=== PATIENT | female | born 1980 ===

== ENCOUNTER 2017-08-27 22:28 | Emergency (ER) | payer OTHER ==
[2017-08-27 22:44] VITALS: BP 103/70; PULSE 74; RESP 18; TEMP 98.2; O2SAT 99
[2017-08-27 23:08] LABS: HCG,QUALITATIVE URINE NEGATIVE (NEGATIVE); SQUAMOUS EPITHIAL 5 /hpf (0-5); URINE BACTERIA RARE (<OCC)
[2017-08-27 23:10] LABS: PH,URINE 7.5 (5.0-8.0); URINE BILIRUBIN NEGATIVE (NEGATIVE); URINE BLOOD NEGATIVE (NEGATIVE); URINE CLARITY CLEAR (Clear); URINE COLOR YELLOW (YELLOW); URINE GLUCOSE (UA) NEGATIVE (Normal); URINE LEUKOCYTE ESTERASE NEGATIVE Leu/uL (Negative); URINE NITRATE NEGATIVE (NEGATIVE); URINE PROTEIN TRACE mg/dL (NEGATIVE); URINE UROBILINOGEN 0.2 mg/dL (0.2-1.0)
[2017-08-28] MEDS ORDERED: cefTRIAXone (Rocephin) 250 mg Inj IM STA (00:12)
--- NOTE | 2017-08-28 00:34 | C.PDOC ---
History Of Present Illness 36 year old female presents to the ER with a one week Hx of suprapubic pain, associated with urinary frequency and burning on urination. Patient reports the pain worsened over the past two days, states it hurts to walk. Denies fever, diarrhea, or vaginal bleeding. Time Seen by Provider: 08/27/17 22:51 Chief Complaint (Nursing): Female Genitourinary History Per: Patient History/Exam Limitations: no limitations Onset/Duration Of Symptoms: Days Current Symptoms Are (Timing): Still Present Quality Of Discomfort: Unable To Describe Associated Symptoms: denies: Fever, Vomiting, Diarrhea, Other (Vaginal bleeding) Alleviating Factors: None Recent travel outside of the [place]: No Abnormal Vaginal Bleeding: No Past Medical History Reviewed: Historical Data, Nursing Documentation, Vital Signs Vital Signs: Last Vital Signs Temp 98.2 F 08/27/17 22:41 Pulse 74 08/27/17 22:41 Resp 18 08/27/17 22:41 BP 103/70 08/27/17 22:41 Pulse Ox 99 08/28/17 02:43 - [facility] Procedures EXTRACTION OF PRODUCTS OF CONCEPTION, RETAINED, VIA OPENING (08/22/16) INSPECTION OF PELVIC CAVITY, PERC ENDO APPROACH (08/22/16) Family History: States: Unknown Family Hx - Social History Hx Tobacco Use: No Hx Alcohol Use: No Hx Substance Use: No - Immunization History Hx Tetanus Toxoid Vaccination: No Hx Influenza Vaccination: Yes Hx Pneumococcal Vaccination: No Review Of Systems Constitutional: Negative for: Fever Gastrointestinal: Positive for: Abdominal Pain. Negative for: Vomiting, Diarrhea Genitourinary: Positive for: Dysuria, Frequency. Negative for: Vaginal Bleeding Physical Exam - Physical Exam Appears: Non-toxic, No Acute Distress Skin: Normal Color, Warm, Dry Head: Atraumatic, Normacephalic Eye(s): bilateral: Normal Inspection Oral Mucosa: Moist Neck: Normal ROM, Supple Chest: Symmetrical, No Tenderness Cardiovascular: Rhythm Regular Respiratory: Normal Breath Sounds, No Rales, No Rhonchi, No Wheezing Gastrointestinal/Abdominal: Soft, Tenderness (Suprapubic), No Guarding, No Rebound Back: Normal Inspection, No CVA Tenderness Pelvic: Normal External Exam, No Vaginal Bleeding, Vaginal Discharge (Yellow/ white), Cervical Motion Tenderness, No Adnexal Tenderness, Other (Stock Broker Supervisor: Imelda WORTHY) Extremity: Normal ROM, No Tenderness, No Swelling Neurological/Psych: Oriented x3, Normal Speech, Normal Motor, Normal Sensation Gait: Steady ED Course And Treatment O2 Sat by Pulse Oximetry: 99 (on RA) Pulse Ox Interpretation: Normal Medical Decision Making Medical Decision Making: Urine and gc/chlamydia cultures sent. Patient has (+) CMT and will be treated for possible PID. UA was negative, will not treat for UTI. Doxycycline, flagyl, and rocephin administered. Patient is resting comfortably in the ER in no acute distress, will discharge home with instructions to follow up with HARDWARE TEST ENGINEER or return to the ER if symptoms worsen. Disposition - Disposition Referrals: Non [facility] Provider, [Primary Care Provider] - [place] [employer] [facility] [employer] [Outside] [facility] [Outside] Disposition: HOME/ ROUTINE Disposition Time: 00:34 Condition: GOOD Additional Instructions: Follow up with the OBGYN within 1-2 days. Return if worsened. Prescriptions: Doxycycline Hyclate 100 mg PO BID #27 cap metroNIDAZOLE [Flagyl] 500 mg PO BID #14 tab Instructions: Pelvic Inflammatory Disease (ED) Forms: [employer] (Vincentian) - Clinical Impression Clinical Impression: Pelvic inflammatory disease - PA / TIN CUTTER / Resident Statement MD/DO has reviewed & agrees with the documentation as recorded. - Scribe Statement The provider has reviewed the documentation as recorded by the Scribmaribel Wilson All medical record entries made by the Sirishaibmaribel were at my direction and personally dictated by me. I have reviewed the chart and agree that the record accurately reflects my personal performance of the history, physical exam, medical decision making, and the department course for this patient. I have also personally directed, reviewed, and agree with the discharge instructions and disposition.
== END 2017-08-28 00:38 | disposition home or self-care (01) ==
LOC: C.ER 22:28 → SUPCPDRO 22:28 → C.ER 08-28 00:38
DX: N73.9 Female pelvic inflammatory disease, unspecified (principal)
CPT/HCPCS: 81001; 84703; 87086; 87181; 87491; 87591; 96372; 99284; J0696

== ENCOUNTER 2017-12-02 09:43 | Emergency (ER) | payer OTHER ==
[2017-12-02 09:50] VITALS: BP 100/60; PULSE 86; RESP 20; TEMP 97.6; O2SAT 100
--- NOTE | 2017-12-02 10:34 | C.PDOC ---
History Of Present Illness 37 y/o female presents to the ED complaining of nasal congestion with associated allergic shiners, for 1 month. No fevers, cough, SOB, throat swelling or pain. Patient has not tried taking any OTC medications. Time Seen by Provider: 12/02/17 10:28 Chief Complaint (Nursing): Allergic Reaction History Per: Patient History/Exam Limitations: no limitations Onset/Duration Of Symptoms: Days Current Symptoms Are (Timing): Still Present Past Medical History Reviewed: Historical Data, Nursing Documentation, Vital Signs Vital Signs: Last Vital Signs Temp 97.6 F 12/02/17 09:49 Pulse 86 12/02/17 09:49 Resp 20 12/02/17 09:49 BP 100/60 12/02/17 09:49 Pulse Ox 100 12/02/17 12:38 - Medical History PMH: Denies: Alzheimer's Disease, Chronic Kidney Disease Other PMH: Ovarian cysts Other Surgeries: Ovarian cyst removal, D&C - [facility] Procedures EXTRACTION OF PRODUCTS OF CONCEPTION, RETAINED, VIA OPENING (08/22/16) INSPECTION OF PELVIC CAVITY, PERC ENDO APPROACH (08/22/16) Family History: States: Unknown Family Hx - Social History Hx Tobacco Use: No Hx Alcohol Use: No Hx Substance Use: No - Immunization History Hx Tetanus Toxoid Vaccination: No Hx Influenza Vaccination: Yes Hx Pneumococcal Vaccination: No Review Of Systems Except As Marked, All Systems Reviewed And Found Negative. Constitutional: Negative for: Fever, Chills ENT: Positive for: Nose Congestion, Other (redness under eyes) Respiratory: Negative for: Cough, Shortness of Breath Physical Exam - Physical Exam Appears: Non-toxic, No Acute Distress Skin: Warm, Dry, No Rash Head: Atraumatic, Normacephalic Eye(s): bilateral: PERRL, EOMI, Other (bilateral allergic shiners with edema below eyes) Nose: Discharge (nasal congestion noted) Oral Mucosa: Moist Throat: Normal, No Erythema, No Exudate Neck: Normal ROM, Supple Chest: Symmetrical Cardiovascular: Rhythm Regular, No Murmur Respiratory: Normal Breath Sounds, No Accessory Muscle Use, No Rales, No Rhonchi , No Wheezing Neurological/Psych: Oriented x3, Normal Speech ED Course And Treatment O2 Sat by Pulse Oximetry: 100 (RA) Pulse Ox Interpretation: Normal Medical Decision Making Medical Decision Making: Impression: seasonal allergies, allergic shiners and edema beneath eyelids Patient is stable for d/c home. Certrazine and other OTC allergy meds instructed. Disposition Doctor Will See Patient In The: Office Counseled Patient/Family Regarding: Studies Performed, Diagnosis - Disposition Referrals: [facility] [Outside] [facility] [Outside] [facility] [Outside] Disposition: HOME/ ROUTINE Disposition Time: 10:34 Condition: GOOD Additional Instructions: recebio' Prednisona 20 mg y Pepcid 20 mg en la ailyn de emergencia hoy Sigue Ronda o' Zyrtec (o' cualquier medicamento para las allergias de la temporada) Pude seguir Benadyl 25-50 mg cada 6 horas encima de lo demas blair necessario. Instructions: Seasonal Allergies in Adults, Hives (DC) Forms: [employer] (Beninese) Print Language: KYRGYZ - POA Present On Arrival: None - Clinical Impression Clinical Impression: Allergic urticaria, Allergic shiners - Scribe Statement The provider has reviewed the documentation as recorded by the Scribe (Mile Anguiano) Provider Attestation: All medical record entries made by the Scribe were at my direction and personally dictated by me. I have reviewed the chart and agree that the record accurately reflects my personal performance of the history, physical exam, medical decision making, and the department course for this patient. I have also personally directed, reviewed, and agree with the discharge instructions and disposition.
== END 2017-12-02 10:44 | disposition home or self-care (01) ==
LOC: C.ER 09:43
DX: L50.0 Allergic urticaria (principal)

== ENCOUNTER 2018-03-17 23:32 | Emergency (ER) | payer SELFPAY ==
[2018-03-18 00:03] VITALS: O2SAT 100
--- NOTE | 2018-03-18 00:13 | C.PDOC ---
History Of Present Illness 37yo female, LMP in January 2018 (irregular menses), comes to ER complaining of abdominal pain and vaginal bleeding x 1 week. Patient reports a small amount of blood, and associated subjective fever. She denies any dysuria, nausea or vomiting. Patient states she did not know she was . Time Seen by Provider: 03/18/18 00:08 Chief Complaint (Nursing): Abdominal Pain History Per: Patient History/Exam Limitations: no limitations Onset/Duration Of Symptoms: Days Current Symptoms Are (Timing): Still Present Location Of Pain/Discomfort: Diffuse Quality Of Discomfort: "Pain" Additional History Per: Patient Abnormal Vaginal Bleeding: Yes Last Menstral Period: January 2018 Past Medical History Reviewed: Historical Data, Nursing Documentation, Vital Signs Vital Signs: Last Vital Signs Temp 98.1 F 03/18/18 02:46 Pulse 60 03/18/18 02:46 Resp 16 03/18/18 02:46 BP 99/64 L 03/18/18 02:46 Pulse Ox 100 03/18/18 02:50 - Medical History PMH: No Chronic Diseases Denies: Alzheimer's Disease, Chronic Kidney Disease Other Surgeries: right oopherectomy due to large cysts - [facility] Procedures EXTRACTION OF PRODUCTS OF CONCEPTION, RETAINED, VIA OPENING (08/22/16) INSPECTION OF PELVIC CAVITY, PERC ENDO APPROACH (08/22/16) Family History: States: No Known Family Hx - Social History Hx Tobacco Use: No Hx Alcohol Use: Yes Hx Substance Use: No - Immunization History Hx Tetanus Toxoid Vaccination: No Hx Influenza Vaccination: Yes Hx Pneumococcal Vaccination: No Review Of Systems Except As Marked, All Systems Reviewed And Found Negative. Constitutional: Positive for: Fever. Negative for: Chills Cardiovascular: Negative for: Chest Pain Respiratory: Negative for: Shortness of Breath Gastrointestinal: Positive for: Abdominal Pain. Negative for: Nausea, Vomiting Genitourinary: Positive for: Vaginal Bleeding. Negative for: Dysuria, Frequency , Hematuria Musculoskeletal: Negative for: Back Pain Neurological: Negative for: Weakness, Numbness Physical Exam - Physical Exam Appears: Non-toxic, No Acute Distress Skin: Normal Color, Warm Head: Atraumatic, Normacephalic Eye(s): bilateral: Normal Inspection, PERRL, EOMI Neck: Normal, Supple Chest: Symmetrical Cardiovascular: Rhythm Regular Respiratory: Normal Breath Sounds Gastrointestinal/Abdominal: Soft, Tenderness (mild diffuse tenderness), No Mass , No Guarding, No Rebound Back: Normal Inspection, No CVA Tenderness, No Vertebral Tenderness, No Paraspinal Tenderness Extremity: Normal ROM, No Pedal Edema, No Calf Tenderness Neurological/Psych: Oriented x3 ED Course And Treatment - Laboratory Results Result Diagrams: 03/18/18 00:50 03/18/18 00:50 O2 Sat by Pulse Oximetry: 100 (RA) Pulse Ox Interpretation: Normal Medical Decision Making Medical Decision Making: Plan: * Labs * US OB 1st Trimester 0249 EXAM: US , Transvaginal US Duplex Arterial/Venous of the Pelvis, ovaries Complete CLINICAL HISTORY: 37 years old, female; Pain; complicated by abdominal or pelvic pain; Lower; First trimester; Gestational age or lmp: 02/04/18; ; Additional info: Ectopic TECHNIQUE: Real-time transvaginal obstetrical ultrasound of the maternal pelvis and a first trimester with image documentation. Transvaginal imaging was used for better evaluation of the fetus and adnexa.Grayscale, color and spectral pulse Doppler images are submitted.A duplex /doppler ultrasound was performed specifically BOTH COLOR FLOW AND spectral Doppler analysis (waveforms) were performed and interpreted. 49 images are submitted. The images and worksheet are transmitted twice. COMPARISON: No relevant prior studies available. FINDINGS: Gestation: There is single intrauterine gestational sac with presence of yolk sac, pole The heart motion at the rate of 131 beats per minute. Estimated gestational age calculated from [place] rump length is estimated to be 7 weeks 1 days and the estimated gestational age calculated from mean sac diameter is estimated to BE 7 weeks 0 days. Placenta/amniotic fluid: Cannot be adequately evaluated due to the early gestational age. Uterus/cervix: Unremarkable. No myometrial mass. Ovaries: There is left ovarian corpus luteum measuring 1.4 x 1.3 x 1.4 cm. The right ovary has been removed. The left ovary measures 3.4 x 2.4 x 3.6 cm. Duplex assessment demonstrates presence of color Doppler signal and spectral Doppler waveform in left ovary. Free fluid: There is small amount of free pelvic fluid. IMPRESSION: 1. There is left ovarian corpus luteum measuring 1.4 x 1.3 x 1.4 cm. 2. There is small amount of free pelvic fluid. Disposition Counseled Patient/Family Regarding: Diagnosis - Disposition Referrals: [facility] [Outside] [facility] at [facility] [Outside] [facility] [place] [Outside] Disposition: HOME/ ROUTINE Disposition Time: 02:16 Condition: GOOD Additional Instructions: return if symptoms worsen Prescriptions: Vit Calc,Iron,Folic [Kpn] 1 each PO DAILY 30 Days #30 tablet Forms: [employer] (Danish) - Clinical Impression Clinical Impression: Threatened - Scribe Statement The provider has reviewed the documentation as recorded by the Arleen Stokes Provider Attestation: All medical record entries made by the Arleen were at my direction and personally dictated by me. I have reviewed the chart and agree that the record accurately reflects my personal performance of the history, physical exam, medical decision making, and the department course for this patient. I have also personally directed, reviewed, and agree with the discharge instructions and disposition.
[2018-03-18 00:53] LABS: BASO % 0.6 % (0.0-2.0); EOS # 0.1 K/uL (0.0-0.7); EOS % 1.5 % (0.0-4.0); HEMOGLOBIN 11.6 g/dL (11.0-16.0); LYMPH # 2.1 K/uL (1.0-4.3); LYMPH % 29.8 % (20.0-40.0); MEAN CELL VOLUME 94.8 fL (81.0-99.0); MEAN CORPUSCULAR HEMOGLOBIN 32.1 pg (27.0-31.0); MEAN CORPUSCULAR HGB CONC 33.8 g/dL (33.0-37.0); MONO # 0.7 K/uL (0.0-0.8); MONO % 10.2 % (0.0-10.0); NEUT % 57.9 % (50.0-75.0); RBC 3.6 Mil/uL (3.80-5.20); RED CELL DISTRIBUTION WIDTH 14.2 % (11.5-14.5); WHITE BLOOD COUNT 6.9 K/uL (4.8-10.8)
[2018-03-18 01:11] LABS: ALB/GLOB RATIO 1.7 (1.0-2.1); ALBUMIN 4.6 g/dL (3.5-5.0); ALT/SGPT 23 U/L (9-52); AST/SGOT 20 U/L (14-36); BLOOD UREA NITROGEN 12 mg/dL (7-17); CALCIUM 9.4 mg/dl (8.6-10.4); GFR NON-AFRICAN AMERICAN > 60
[2018-03-18 02:37] LABS: SQUAMOUS EPITHIAL 4 /hpf (0-5); URINE BACTERIA FEW (<OCC); URINE BILIRUBIN NEGATIVE (NEGATIVE); URINE BLOOD NEGATIVE (NEGATIVE); URINE CLARITY Clear (Clear); URINE COLOR Yellow (YELLOW); URINE GLUCOSE (UA) NORMAL (Normal); URINE LEUKOCYTE ESTERASE NEG Leu/uL (Negative); URINE PROTEIN NEGATIVE (NEGATIVE)
[2018-03-18 02:47] VITALS: BP 99/64; PULSE 60; RESP 16; TEMP 98.1
--- NOTE | 2018-03-18 08:48 | US ---
HISTORY: Evaluate for ectopic . Pain. No bleeding. LMP 02/04/2018. Estimated gestational age by LMP is 7 weeks 3 days. History states right ovary removed. COMPARISON: None TECHNIQUE: Transvaginal technique utilized. FINDINGS: UTERUS: Measures 11.5 x 6.7 x 7.7cm. The uterus is anteverted . No fibroid or other mass lesion seen. An intrauterine gestational sac is present corresponding to a 7 week 0 day gestation. 4 mm Yolk sac is present. [place]-rump length 1.1 cm embryonic pole with cardiac activity present at 1:31 is present. No subchorionic hemorrhage noted Cervix No cervical abnormality identified. RIGHT OVARY: Not visualized compatible with its history of prior removal. Reason for prior removal unknown LEFT OVARY: Measures 3.4 x 2.4 x 3.6 cm. No solid mass. Normal flow. A 1.4 x 1.3 x 1.4 cm small corpus luteal cyst noted FREE FLUID: There is a small amount of free fluid in the cul-de-sac present OTHER FINDINGS: No ectopic gestation seen IMPRESSION: Single intrauterine gestation with normal cardiac activity with a gestational age by ultrasound . The ultrasound estimated gestational age is 7 weeks 1 day. This is concordant with the estimated gestational age by LMP of 7 weeks 3 days. No ectopic identified. Nonvisualized right ovary consistent with its prior removal. Small left corpus luteal cyst noted Minimal free fluid in the cul-de-sac Concordant results (preliminary interpretation) provided by [employer].
== END 2018-03-18 02:55 | disposition home or self-care (01) ==
LOC: C.ER 23:32
DX: O20.0 Threatened abortion (principal); Z3A.01 Less than 8 weeks gestation of pregnancy

== ENCOUNTER 2018-03-22 13:44 | Emergency (ER) | payer OTHER ==
[2018-03-22 14:11] VITALS: O2SAT 100
--- NOTE | 2018-03-22 14:41 | C.PDOC ---
History Of Present Illness 37 y/o F at approximately 8 weeks gestation p/w vagina bleeding. Patient reports bright red bleeding vaginally this morning associated with lower abdominal and lower back pain that she characterizes as cramping, intermittent, nonradiating. Denies fever, vomiting, dysuria, trauma. Time Seen by Provider: 03/22/18 14:23 Chief Complaint (Nursing): Female Genitourinary Past Medical History Vital Signs: Last Vital Signs Temp 97 F L 03/22/18 14:08 Pulse 62 03/22/18 17:04 Resp 18 03/22/18 14:08 BP 91/56 L 03/22/18 17:04 Pulse Ox 100 03/22/18 17:15 - Medical History PMH: Denies: Alzheimer's Disease, Chronic Kidney Disease - [facility] Procedures EXTRACTION OF PRODUCTS OF CONCEPTION, RETAINED, VIA OPENING (08/22/16) INSPECTION OF PELVIC CAVITY, PERC ENDO APPROACH (08/22/16) Family History: States: Unknown Family Hx - Social History Hx Tobacco Use: No Hx Alcohol Use: Yes Hx Substance Use: No - Immunization History Hx Tetanus Toxoid Vaccination: No Hx Influenza Vaccination: Yes Hx Pneumococcal Vaccination: No Review Of Systems Except As Marked, All Systems Reviewed And Found Negative. Constitutional: Negative for: Fever Cardiovascular: Negative for: Chest Pain Physical Exam - Physical Exam Additional Physical Exam Comments: Constitutional: No acute distress. Head: Normocephalic. Atraumatic. Eyes: PERRL. ENT: Moist mucous membranes. Neck: Supple. Cardiovascular: Regular rate. Radial pulse 2+ bilaterally. Chest: No tenderness. Respiratory: Clear to auscultation bilaterally. GI: Soft. Lower abdominal tenderness. Nondistended. No guarding. Back: No CVA tenderness. Musculoskeletal: No tenderness or swelling of extremities. Skin: No rash. Neurologic: Alert, no focal deficit. ED Course And Treatment - Laboratory Results Result Diagrams: 03/22/18 15:04 03/22/18 15:04 O2 Sat by Pulse Oximetry: 100 Medical Decision Making Medical Decision Making: Seen by OBGYN, patient preferred cytotec vs D&C. F/u OBGYN after complete, instructed to return to ED for worsening pain, fever, vomiting, dyspnea, or any other problem. Disposition - Disposition Disposition: HOME/ ROUTINE Disposition Time: 17:15 Condition: STABLE Prescriptions: miSOPROStol [Cytotec] 4 tab PO Q3H #12 tab Instructions: Miscarriage Forms: [employer] (Haitian) - Clinical Impression Clinical Impression: Spontaneous - Scribe Statement The provider has reviewed the documentation as recorded by the Scribe (Riccardo Barry) Provider Attestation: All medical record entries made by the Scribe were at my direction and personally dictated by me. I have reviewed the chart and agree that the record accurately reflects my personal performance of the history, physical exam, medical decision making, and the department course for this patient. I have also personally directed, reviewed, and agree with the discharge instructions and disposition.
[2018-03-22] MEDS ORDERED: Sodium Chloride 0.9% 1,000 ML IV STA (14:42)
[2018-03-22 15:10] LABS: BASO # 0.1 K/uL (0.0-0.2); BASO % 0.9 % (0.0-2.0); EOS # 0.1 K/uL (0.0-0.7); EOS % 1.1 % (0.0-4.0); HEMOGLOBIN 11.6 g/dL (11.0-16.0); LYMPH # 1.4 K/uL (1.0-4.3); LYMPH % 24.9 % (20.0-40.0); MEAN CELL VOLUME 93.7 fL (81.0-99.0); MEAN CORPUSCULAR HGB CONC 34.2 g/dL (33.0-37.0); MEAN PLATELET VOLUME 7.6 fL (7.2-11.7); MONO # 0.8 K/uL (0.0-0.8); MONO % 13.6 % (0.0-10.0); NEUT # 3.4 K/uL (1.8-7.0); NEUT % 59.5 % (50.0-75.0); RBC 3.61 Mil/uL (3.80-5.20); WHITE BLOOD COUNT 5.7 K/uL (4.8-10.8)
[2018-03-22 15:20] LABS: ALB/GLOB RATIO 1.6 (1.0-2.1); ALBUMIN 4.2 g/dL (3.5-5.0); ALT/SGPT 24 U/L (9-52); AST/SGOT 19 U/L (14-36); BLOOD UREA NITROGEN 10 mg/dL (7-17); CALCIUM 9.2 mg/dl (8.6-10.4); GFR NON-AFRICAN AMERICAN > 60
[2018-03-22 16:16] LABS: SQUAMOUS EPITHIAL 4 /hpf (0-5); URINE BACTERIA RARE (<OCC); URINE BILIRUBIN NEGATIVE (NEGATIVE); URINE BLOOD 2+ (NEGATIVE); URINE CLARITY Clear (Clear); URINE COLOR Straw (YELLOW); URINE GLUCOSE (UA) NORMAL (Normal); URINE LEUKOCYTE ESTERASE NEG Leu/uL (Negative); URINE PROTEIN NEGATIVE (NEGATIVE); URINE UROBILINOGEN NORMAL mg/dL (0.2-1.0)
--- NOTE | 2018-03-22 16:16 | US ---
Date of service: 03/22/2018 PROCEDURE: OB Pelvic Ultrasound HISTORY: vag bleed in , assess cervix LMP: 01/25/2018 COMPARISON: Pelvic ultrasound dated 03/18/2018 FINDINGS: UTERUS: Gestational sac: Single intrauterine gestation. Measures 3.0 cm compatible with estimated gestational age of 7 weeks, 6 days. Yolk sac: Measures 0.3 cm. pole: [place]-rump length measures 1.8 cm compatible with estimated gestational age of 8 weeks, 2 days Heart rate: Not identified. age (Ultrasound estimated): 8 weeks, 1 day Aileen-gestational hemorrhage: None. Date of delivery (Ultrasound estimated) : 10/31/2018 Uterus measures 13.4 x 6.8 x 8.1 cm. Anteverted. Normal in size and appearance. CERVIX: Measures 3.9 cm. Long and closed. No cervical abnormality seen. RIGHT OVARY: Prior right oophorectomy. LEFT OVARY: Measures 3.0 x 2.6 x 3.2 cm. 1.2 x 1.1 x 1.2 cm corpus luteum. Normal flow. FREE FLUID: Trace free fluid in the cul-de-sac. OTHER FINDINGS: None. IMPRESSION: Single intrauterine gestation with average ultrasound age 8 weeks, 1 day. heart rate not identified on the current examination. Cervix long and closed. Absence of heart rate raise the possibility of demise. Close clinical follow-up with serial pelvic sonography and serum beta HCG levels is recommended.
[2018-03-22 17:04] VITALS: PULSE 62
--- NOTE | 2018-03-22 18:08 | CP.PCM.CON ---
<Tri Stewart - Last Filed: 03/22/18 17:59> History of Present Illness - History of Present Illness History of Present Illness: CC: left quadrant cramping and vaginal bleeding OBGYN Consult Note for Dr. Paula Patient is a 37 year old F with no significant pmhx who presents today with left lower quadrant cramping and bleeding. Patient was recently at [facility] on 03/17/18 for abdominal pain and was told she was . Today patient took two Tylenol's for abdominal pain and when she went to urinate she passed a bright red blood clot. Patient went through two pads. Patient also admits to difficulty urinating, but no pain with urination. Patient has no had sex in the past week. Patient denies any fevers or chills. PMHx: denies OBhx: [facility] 1997, baby boy, 7lbs 9 oz, [facility] Spontaneous 1999, 12 weeks, D&C, no complications [facility] 2001, baby boy, 9lbs 2 oz, [facility] 2006, baby girl 9lbs [facility] 2015, baby girl 7lbs, [facility] last pap 6 months ago at [facility]. Patient goes to [place] for OBGYN, but unsure of specific doctor she sees Psurg: laparascopic right oophorectomy 2008. d&c for spont in 1999 Meds: denies Social: denies tobacco, alcohol, drugs Famhx: parental grandmother- of ovarian CA Review of Systems - Constitutional Constitutional: absent: Chills, Fever - Respiratory Respiratory: absent: Dyspnea - Genitourinary Genitourinary: Voiding Freq/Small Amts. absent: Dysuria - Reproductive: Female Reproductive:Female: Cycle >35 Days, Abnormal Vaginal Bleeding, Pelvic Pain - Menstruation Menstruation: Cycle Variable - Integumentary Integumentary: absent: Rash Past Patient History - Infectious Disease Hx of Infectious Diseases: None - Past Medical History & Family History Past Medical History?: No - Past Social History Smoking Status: Never Smoked - CARDIAC Hx Cardiac Disorders: No - PULMONARY Hx Respiratory Disorders: No - NEUROLOGICAL Hx Alzheimer's Disease: No - HEENT Hx HEENT Problems: No - RENAL Hx Chronic Kidney Disease: No - ENDOCRINE/METABOLIC Hx Endocrine Disorders: No - HEMATOLOGICAL/ONCOLOGICAL Hx Blood Disorders: No - INTEGUMENTARY Hx Dermatological Problems: No - MUSCULOSKELETAL/RHEUMATOLOGICAL Hx Musculoskeletal Disorders: No - GASTROINTESTINAL Hx Gastrointestinal Disorders: No - GENITOURINARY/GYNECOLOGICAL Hx Genitourinary Disorders: Yes (ovarian cysts) - PSYCHIATRIC Hx Substance Use: No - SURGICAL HISTORY Hx Surgeries: Yes Hx Dilation and Curettage: Yes (1999) Other/Comment: Laparoscopic ovarian cystectomy, 2008 and 2012 - ANESTHESIA Hx Anesthesia: Yes Hx Anesthesia Reactions: No Hx Malignant Hyperthermia: No Meds Home Medications: Home Medication List Medication Instructions Recorded Confirmed Type miSOPROStol [Cytotec] 4 tab PO Q3H #12 tab 03/22/18 Rx Allergies/Adverse Reactions: Allergies Allergy/AdvReac Type Severity Reaction Status Date / Time No Known Allergies Allergy Verified 03/22/18 14:11 Physical Exam - Constitutional Appears: Non-toxic, No Acute Distress - Head Exam Head Exam: ATRAUMATIC, NORMAL INSPECTION, NORMOCEPHALIC - Respiratory Exam Respiratory Exam: Clear to Auscultation Bilateral, NORMAL BREATHING PATTERN - Cardiovascular Exam Cardiovascular Exam: REGULAR RHYTHM, RRR, +S1, +S2 - GI/Abdominal Exam GI & Abdominal Exam: Normal Bowel Sounds, Soft, Tenderness (left sided suprapubic pain ) - Exam Speculum exam: Vaginal Bleeding (dark blood in vaginal vault, no active bleeding ) Bimanual exam: NORMAL BIMANUAL EXAM Additional comments: closed cervix - Extremities Exam Extremities exam: Positive for: normal inspection - Neurological Exam Neurological exam: Alert, Oriented x3 - Psychiatric Exam Psychiatric exam: Normal Affect, Normal Mood - Skin Skin Exam: Intact, Normal Color, Warm Results - Vital Signs Recent Vital Signs: Last Vital Signs Temp 97 F L 03/22/18 14:08 Pulse 62 03/22/18 17:04 Resp 18 03/22/18 14:08 BP 91/56 L 03/22/18 17:04 Pulse Ox 100 03/22/18 17:56 - Labs Result Diagrams: 03/22/18 15:04 03/22/18 15:04 Labs: Laboratory Results - last 24 hr 03/22/18 03/22/18 03/22/18 15:04 15:04 16:02 WBC 5.7 RBC 3.61 L Hgb 11.6 Hct 33.8 L MCV 93.7 MCH 32.0 H MCHC 34.2 RDW 14.0 Plt Count 256 MPV 7.6 Neut % (Auto) 59.5 Lymph % (Auto) 24.9 [place] % (Auto) 13.6 H Eos % (Auto) 1.1 Baso % (Auto) 0.9 Neut # (Auto) 3.4 Lymph # (Auto) 1.4 [place] # (Auto) 0.8 Eos # (Auto) 0.1 Baso # (Auto) 0.1 Sodium 137 Potassium 4.0 Chloride 102 Carbon Dioxide 24 Anion Gap 14 BUN 10 Creatinine 0.5 L Est GFR ( Amer) > 60 Est GFR (Non-Af Amer) > 60 Random Glucose 87 Calcium 9.2 Total Bilirubin 0.6 AST 19 ALT 24 Alkaline Phosphatase 58 Total Protein 6.9 Albumin 4.2 Globulin 2.7 Albumin/Globulin Ratio 1.6 Beta HCG, Quant Urine Color Straw Urine Clarity Clear Urine pH 7.0 Ur Specific [place] 1.008 Urine Protein Negative Urine Glucose (UA) Normal Urine Ketones Negative Urine Blood 2+ H Urine Nitrate Negative Urine Bilirubin Negative Urine Urobilinogen Normal Ur Leukocyte Esterase Neg Urine WBC (Auto) 1 Urine RBC (Auto) 1 Ur Squamous Epith Cells 4 Urine Bacteria Rare 03/22/18 16:30 WBC RBC Hgb Hct MCV MCH MCHC RDW Plt Count MPV Neut % (Auto) Lymph % (Auto) [place] % (Auto) Eos % (Auto) Baso % (Auto) Neut # (Auto) Lymph # (Auto) [place] # (Auto) Eos # (Auto) Baso # (Auto) Sodium Potassium Chloride Carbon Dioxide Anion Gap BUN Creatinine Est GFR ( Amer) Est GFR (Non-Af Amer) Random Glucose Calcium Total Bilirubin AST ALT Alkaline Phosphatase Total Protein Albumin Globulin Albumin/Globulin Ratio Beta HCG, Quant 28439.00 Urine Color Urine Clarity Urine pH Ur Specific [place] Urine Protein Urine Glucose (UA) Urine Ketones Urine Blood Urine Nitrate Urine Bilirubin Urine Urobilinogen Ur Leukocyte Esterase Urine WBC (Auto) Urine RBC (Auto) Ur Squamous Epith Cells Urine Bacteria Assessment & Plan - Assessment and Plan (Free Text) Assessment: Missed ob ultrasound: single intrauterine gestation with average ultrasound age 8 weeks , 1 day. herat rate not identified. cervix long and closed. prescribed Cytotec 800mcg sublingual q3h until bleeding begins, max: 3 doses patient offered option of going to clinic for D&C, but denied and would prefer oral medication patient trying to become , patient explained to start vitamins in a few weeks Urinary Hesitancy normal u/a patient to follow up at [facility] Management as per Dr. 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 Agree w/ assessment and plan w/ following modifications: PE: SSE: cl/th no active bleeding per cerv os. dark red blood in vault I: Missed P: IF no painful cramps w/ first cytotec dose she may repeat the dose 2 additional times. She is to f/u with obgyn to confirm complete and to refrain from sexual activity Pt desires future . She was advised once this is documented to be complete she may begin pnv prior to attempting conception. Physical Exam - Exam Speculum exam: absent: Cervical Discharge Bimanual exam: absent: Cervical Motion Tendernes, Uterine Tenderness Results - Vital Signs Recent Vital Signs: Last Vital Signs Temp 97.1 F L 03/22/18 18:12 Pulse 62 03/22/18 17:04 Resp 17 03/22/18 18:12 BP 98/60 L 03/22/18 18:12 Pulse Ox 100 03/22/18 18:12 - Labs Result Diagrams: 03/22/18 15:04 03/22/18 15:04 Labs: Laboratory Results - last 24 hr 03/22/18 03/22/18 03/22/18 15:04 15:04 16:02 WBC 5.7 RBC 3.61 L Hgb 11.6 Hct 33.8 L MCV 93.7 MCH 32.0 H MCHC 34.2 RDW 14.0 Plt Count 256 MPV 7.6 Neut % (Auto) 59.5 Lymph % (Auto) 24.9 [place] % (Auto) 13.6 H Eos % (Auto) 1.1 Baso % (Auto) 0.9 Neut # (Auto) 3.4 Lymph # (Auto) 1.4 [place] # (Auto) 0.8 Eos # (Auto) 0.1 Baso # (Auto) 0.1 Sodium 137 Potassium 4.0 Chloride 102 Carbon Dioxide 24 Anion Gap 14 BUN 10 Creatinine 0.5 L Est GFR ( Amer) > 60 Est GFR (Non-Af Amer) > 60 Random Glucose 87 Calcium 9.2 Total Bilirubin 0.6 AST 19 ALT 24 Alkaline Phosphatase 58 Total Protein 6.9 Albumin 4.2 Globulin 2.7 Albumin/Globulin Ratio 1.6 Beta HCG, Quant Urine Color Straw Urine Clarity Clear Urine pH 7.0 Ur Specific [place] 1.008 Urine Protein Negative Urine Glucose (UA) Normal Urine Ketones Negative Urine Blood 2+ H Urine Nitrate Negative Urine Bilirubin Negative Urine Urobilinogen Normal Ur Leukocyte Esterase Neg Urine WBC (Auto) 1 Urine RBC (Auto) 1 Ur Squamous Epith Cells 4 Urine Bacteria Rare 03/22/18 16:30 WBC RBC Hgb Hct MCV MCH MCHC RDW Plt Count MPV Neut % (Auto) Lymph % (Auto) [place] % (Auto) Eos % (Auto) Baso % (Auto) Neut # (Auto) Lymph # (Auto) [place] # (Auto) Eos # (Auto) Baso # (Auto) Sodium Potassium Chloride Carbon Dioxide Anion Gap BUN Creatinine Est GFR ( Amer) Est GFR (Non-Af Amer) Random Glucose Calcium Total Bilirubin AST ALT Alkaline Phosphatase Total Protein Albumin Globulin Albumin/Globulin Ratio Beta HCG, Quant 92346.00 Urine Color Urine Clarity Urine pH Ur Specific [place] Urine Protein Urine Glucose (UA) Urine Ketones Urine Blood Urine Nitrate Urine Bilirubin Urine Urobilinogen Ur Leukocyte Esterase Urine WBC (Auto) Urine RBC (Auto) Ur Squamous Epith Cells Urine Bacteria
[2018-03-22 18:14] VITALS: BP 98/60; RESP 17; TEMP 97.1
== END 2018-03-22 18:12 | disposition home or self-care (01) ==
LOC: C.ER 13:44
DX: O03.9 Complete or unspecified spontaneous abortion without complication (principal)
CPT/HCPCS: 76805; 76817; 80053; 81001; 84702; 85025; 87086; 87181; 99284; J7030

== ENCOUNTER 2018-04-20 12:26 | Day surgery (SDC) | payer OTHER ==
[2018-04-20 15:01] LABS: BASO % 0.7 % (0.0-2.0); EOS # 0.1 K/uL (0.0-0.7); EOS % 2.2 % (0.0-4.0); HEMOGLOBIN 12.3 g/dL (11.0-16.0); LYMPH # 1.8 K/uL (1.0-4.3); MEAN CELL VOLUME 93.9 fL (81.0-99.0); MEAN CORPUSCULAR HEMOGLOBIN 31.7 pg (27.0-31.0); MEAN CORPUSCULAR HGB CONC 33.8 g/dL (33.0-37.0); MEAN PLATELET VOLUME 7.4 fL (7.2-11.7); MONO # 0.5 K/uL (0.0-0.8); MONO % 8.3 % (0.0-10.0); NEUT % 60.8 % (50.0-75.0); NRBC % 0.1 % (0.0-2.0); RBC 3.87 Mil/uL (3.80-5.20); RED CELL DISTRIBUTION WIDTH 13.4 % (11.5-14.5); WHITE BLOOD COUNT 6.6 K/uL (4.8-10.8)
[2018-04-20 15:05] LABS: HCG,QUALITATIVE URINE POSITIVE (NEGATIVE)
[2018-04-20 15:07] LABS: SQUAMOUS EPITHIAL 9 /hpf (0-5); URINE BACTERIA FEW (<OCC); URINE BILIRUBIN NEGATIVE (NEGATIVE); URINE BLOOD 2+ (NEGATIVE); URINE CLARITY Hazy (Clear); URINE COLOR Yellow (YELLOW); URINE GLUCOSE (UA) NORMAL (Normal); URINE LEUKOCYTE ESTERASE NEG Leu/uL (Negative); URINE PROTEIN NEGATIVE (NEGATIVE)
--- NOTE | 2018-04-20 15:28 | C.PDOC ---
History Of Present Illness 37 y/o female presents to ED with c/o low back pain radiating to lower abdomen associated with vaginal bleeding for 3 days. She took Home test yesterday that was positive. Patient states on 03/22/18 she was diagnosed wi th miscarriage and was discharged with cytotec. Patient took the medication for two days and then stop after passing blood clot. (+) foul urine smell. Pt also notes she has a headache since yesterday. Pain is posterior scalp, worse when she rotates her head. Pt notes the she has had the same headaches since she was 8 years old after a fall. She had never gotten then evaluated in the past. The headache usually resolves with Aleve. Denies nausea, vomiting, dysuria, visual changes , uri, neck pain, fever, changes in sensation, subjective neurological changes or any other complaints at this time. Time Seen by Provider: 04/20/18 13:47 Chief Complaint (Nursing): Female Genitourinary History Per: Patient, Release Engineer (Arleen Walsh) History/Exam Limitations: no limitations Onset/Duration Of Symptoms: Days Current Symptoms Are (Timing): Still Present Quality Of Discomfort: "Pain" Past Medical History Reviewed: Historical Data, Nursing Documentation, Vital Signs Vital Signs: Last Vital Signs Temp 98.1 F 04/20/18 20:15 Pulse 63 04/20/18 20:15 Resp 13 04/20/18 20:15 BP 105/59 L 04/20/18 20:15 Pulse Ox 96 04/20/18 20:15 Surgical History: No Surg Hx - [facility] Procedures EXTRACTION OF PRODUCTS OF CONCEPTION, RETAINED, VIA OPENING (08/22/16) INSPECTION OF PELVIC CAVITY, PERC ENDO APPROACH (08/22/16) Family History: States: No Known Family Hx - Social History Hx Tobacco Use: No Hx Alcohol Use: Yes Hx Substance Use: No - Immunization History Hx Tetanus Toxoid Vaccination: No Hx Influenza Vaccination: Yes Hx Pneumococcal Vaccination: No Review Of Systems Except As Marked, All Systems Reviewed And Found Negative. Constitutional: Positive for: Fever. Negative for: Chills Gastrointestinal: Positive for: Abdominal Pain. Negative for: Nausea, Vomiting Genitourinary: Positive for: Vaginal Bleeding. Negative for: Dysuria Musculoskeletal: Positive for: Back Pain Skin: Negative for: Rash Physical Exam - Physical Exam Appears: Non-toxic, No Acute Distress Skin: Warm, Dry, No Rash Head: Atraumatic, Normacephalic, Tenderness (tenderness to the posterior scalp) Eye(s): bilateral: Normal Inspection, PERRL, EOMI Nose: Normal Oral Mucosa: Moist Neck: Normal ROM, Supple Chest: Symmetrical Cardiovascular: Rhythm Regular Respiratory: Normal Breath Sounds, No Rales, No Rhonchi, No Wheezing Gastrointestinal/Abdominal: Soft, No Tenderness, No Guarding, No Rebound Back: No CVA Tenderness Extremity: Normal ROM Neurological/Psych: Oriented x3, Normal Speech, Normal Cognition, Normal Cranial Nerves (2-12 grossly intact), Normal Sensation Gait: Steady ED Course And Treatment - Laboratory Results Result Diagrams: 04/20/18 14:54 04/20/18 14:54 O2 Sat by Pulse Oximetry: 100 (RA) Pulse Ox Interpretation: Normal - CT Scan/US Abdomen US Other Rad Studies (CT/US): Read By Radiologist, Radiology Report Reviewed CT/US Interpretation: PROCEDURE: First trimester ultrasound. HISTORY: Pain. LMP 01/25/2018. COMPARISON: 03/22/2018 ultrasound. TECHNIQUE: Standard protocol for this study/examination. FINDINGS: pole again identified. [place]-rump length 1.78 cm unchanged compared to the prior study. Absence of cardiac activity. Gestational sac measurement 4.6 cm corresponds to gestational age of 10 weeks 1 day. The sac is somewhat deformed. Yolk sac not identified. Prior right oophorectomy. Left ovary 1.3 x 2.4 x 2.7 cm. IMPRESSION: Continued evidence of intrauterine demise. Stable size of pole compared to the prior study 1 month ago. Cardiac activity not identified. Progress Note: Blood work, UA , US abdomen. On re-evaluation, pt notes headache improved. Pt offered further imaging for headache but declined noting she will do it outpt. Neck supple. Afebrile. No visual changes. CAse discussed with OB ux information architect, DR Perdomo who evaluated pt at bedside, states she will take patient to OR for D&C. Disposition - Disposition Disposition: HOSPITALIZED Disposition Time: 14:00 Condition: STABLE - Clinical Impression Clinical Impression: Headache, Missed - PA / RN MILITARY / Resident Statement MD/DO has reviewed & agrees with the documentation as recorded. - Scribe Statement The provider has reviewed the documentation as recorded by the Arleen Huntley All medical record entries made by the Arleen were at my direction and personally dictated by me. I have reviewed the chart and agree that the record accurately reflects my personal performance of the history, physical exam, medical decision making, and the department course for this patient. I have also personally directed, reviewed, and agree with the discharge instructions and disposition.
--- NOTE | 2018-04-20 15:36 | US ---
Date of service: 04/20/2018 PROCEDURE: First trimester ultrasound HISTORY: Pain. LMP 01/25/2018 COMPARISON: 03/22/2018 ultrasound. TECHNIQUE: Standard protocol for this study/examination. FINDINGS: pole again identified. [place]-rump length 1.78 cm unchanged compared to the prior study. Absence of cardiac activity. Gestational sac measurement 4.6 cm corresponds to gestational age of 10 weeks 1 day. The sac is somewhat deformed. Yolk sac not identified. Prior right oophorectomy. Left ovary 1.3 x 2.4 x 2.7 cm. IMPRESSION: Continued evidence of intrauterine demise. Stable size of pole compared to the prior study 1 month ago. Cardiac activity not identified.
[2018-04-20 15:44] LABS: ALB/GLOB RATIO 1.5 (1.0-2.1); ALBUMIN 4.4 g/dL (3.5-5.0); ALT/SGPT 22 U/L (9-52); AST/SGOT 21 U/L (14-36); BLOOD UREA NITROGEN 13 mg/dL (7-17); CALCIUM 9.5 mg/dl (8.6-10.4); GFR NON-AFRICAN AMERICAN > 60
[2018-04-20] MEDS ORDERED: Sodium Chloride 0.9% 1,000 ML IV ONE (17:12)
[2018-04-20] MEDS ORDERED: Lactated Ringer's 1,000 ML IV ONE (17:22)
[2018-04-20] MEDS ORDERED: Lactated Ringer's 1,000 ML ONE (17:26)
[2018-04-20] MEDS ORDERED: ceFAZolin 1 gm in NS 1 GM/100 ML BAG IVPB ONE (17:26)
[2018-04-20] MEDS ORDERED: Lactated Ringer's 1,000 ML IV SCH (17:45)
[2018-04-20 17:56] LABS: PROTHROMBIN TIME 11.2 SECONDS (9.7-12.2)
[2018-04-20] MEDS ORDERED: ceFAZolin 2 GM in Sodium Chloride 0.9% 100 ML IVPB ONE (18:00)
[2018-04-20] MEDS ORDERED: ceFAZolin IV 2 gm in Dextrose 2 GM/50 ML BAG IVPB ONE (18:00)
--- NOTE | 2018-04-20 18:01 | CP.PCM.CON ---
History of Present Illness - History of Present Illness History of Present Illness: 37 y/o female presents to ED with c/o low back pain radiating to lower abdomen associated with orange urine and foul odor in urine. Patient reports vaginal bleeding for 3 days and states she took Home test yesterday that was positive. Patient states on 03/22/18 she was diagnosed with miscarriage and was discharged with cytotec. Patient states 3 days after taking medication at home passed blood clot. Patient took Aleve for tactile fever and denies nausea, vomiting or any other complaints at this time. Pt admits to painful urination and severe occipital RIVERA. Review of Systems - Cardiovascular Cardiovascular: absent: Chest Pain, Pedal Edema - Respiratory Respiratory: absent: Chest Congestion - Gastrointestinal Gastrointestinal: Cramping. absent: Constipation, Vomiting - Genitourinary Genitourinary: Difficulty Urinating, Urinary Frequency - Menstruation Menstruation: Cycle <21 Days - Integumentary Integumentary: absent: Bleeding Lesions, Unusual Bruising - Neurological Neurological: Headaches. absent: Other Visual Disturbances Past Patient History - Infectious Disease Hx of Infectious Diseases: None - Past Medical History & Family History Past Medical History?: No Past Family History: Reviewed and not pertinent - Past Social History Smoking Status: Never Smoked Chewing Tobacco Use: No Cigar Use: No Alcohol: Occasional Drugs: Denies - CARDIAC Hx Cardiac Disorders: No - PULMONARY Hx Respiratory Disorders: No - NEUROLOGICAL Hx Neurological Disorder: No Hx Alzheimer's Disease: No - HEENT Hx HEENT Problems: No - RENAL Hx Chronic Kidney Disease: No - ENDOCRINE/METABOLIC Hx Endocrine Disorders: No - HEMATOLOGICAL/ONCOLOGICAL Hx Blood Disorders: No - INTEGUMENTARY Hx Dermatological Problems: No - MUSCULOSKELETAL/RHEUMATOLOGICAL Hx Musculoskeletal Disorders: No - GASTROINTESTINAL Hx Gastrointestinal Disorders: No - GENITOURINARY/GYNECOLOGICAL Hx Genitourinary Disorders: Yes (ovarian cysts) Hx Cervical Cancer: No Hx Sexually Transmitted Disorders: No Hx Urinary Tract Infection: Yes LMP:: 01/26/2018 : 6 Para: 4 Termination of : 1 - PSYCHIATRIC Hx Substance Use: No - SURGICAL HISTORY Hx Surgeries: Yes Hx Dilation and Curettage: Yes (1999) Other/Comment: Laparoscopic ovarian cystectomy, 2008 and 2012 - ANESTHESIA Hx Anesthesia: Yes Hx Anesthesia Reactions: No Hx Malignant Hyperthermia: No Meds Allergies/Adverse Reactions: Allergies Allergy/AdvReac Type Severity Reaction Status Date / Time No Known Allergies Allergy Verified 03/22/18 14:11 - Medications Medications: Current Medications Lactated Ringer's (Lactated Ringer's) 1,000 mls @ 1,000 mls/hr IV .Q1H ONE Stop: 04/20/18 18:21 Last Admin: 04/20/18 17:30 Dose: 1,000 mls/hr Lactated Ringer's (Lactated Ringer's) 1,000 mls @ 125 mls/hr IV .Q8H JESSICA Cefazolin Sodium 2 gm/ Sodium (Chloride) 100 mls @ 200 mls/hr IVPB ONCE ONE; Protocol Stop: 04/20/18 18:29 Physical Exam - Constitutional Appears: No Acute Distress - Head Exam Head Exam: NORMAL INSPECTION - Neck Exam Neck exam: Positive for: Normal Inspection. Negative for: Tenderness - Respiratory Exam Respiratory Exam: NORMAL BREATHING PATTERN - Cardiovascular Exam Cardiovascular Exam: REGULAR RHYTHM - GI/Abdominal Exam GI & Abdominal Exam: Normal Bowel Sounds, Soft. absent: Distended, Firm, Guarding, Rebound - Rectal Exam Rectal Exam: NORMAL INSPECTION - Exam Exam: NORMAL INSPECTION External exam: NORMAL EXTERNAL EXAM Speculum exam: Vaginal Bleeding Bimanual exam: Uterine Enlargement, Uterine Tenderness - Extremities Exam Extremities exam: Positive for: normal inspection. Negative for: calf tenderness - Back Exam Back exam: NORMAL INSPECTION - Neurological Exam Neurological exam: Alert, Oriented x3 - Psychiatric Exam Psychiatric exam: Normal Affect, Normal Mood - Skin Skin Exam: Dry, Normal Color Results - Vital Signs Recent Vital Signs: Last Vital Signs Temp 98.3 F 04/20/18 15:56 Pulse 57 L 04/20/18 15:56 Resp 16 04/20/18 15:56 BP 95/58 L 04/20/18 15:56 Pulse Ox 100 04/20/18 17:57 - Labs Result Diagrams: 04/20/18 14:54 04/20/18 14:54 Labs: Laboratory Results - last 24 hr 04/20/18 04/20/18 04/20/18 14:54 14:54 14:54 WBC 6.6 RBC 3.87 Hgb 12.3 Hct 36.3 MCV 93.9 MCH 31.7 H MCHC 33.8 RDW 13.4 Plt Count 252 MPV 7.4 Neut % (Auto) 60.8 Lymph % (Auto) 28.0 [place] % (Auto) 8.3 Eos % (Auto) 2.2 Baso % (Auto) 0.7 Neut # (Auto) 4.0 Lymph # (Auto) 1.8 [place] # (Auto) 0.5 Eos # (Auto) 0.1 Baso # (Auto) 0.0 PT INR APTT Sodium 138 Potassium 4.4 Chloride 103 Carbon Dioxide 26 Anion Gap 14 BUN 13 Creatinine 0.5 L Est GFR ( Amer) > 60 Est GFR (Non-Af Amer) > 60 Random Glucose 92 Calcium 9.5 Total Bilirubin 0.5 AST 21 ALT 22 Alkaline Phosphatase 71 Total Protein 7.4 Albumin 4.4 Globulin 3.0 Albumin/Globulin Ratio 1.5 Beta HCG, Quant 808.71 Urine Color Yellow Urine Clarity Hazy Urine pH 6.0 Ur Specific [place] 1.021 Urine Protein Negative Urine Glucose (UA) Normal Urine Ketones Negative Urine Blood 2+ H Urine Nitrate Negative Urine Bilirubin Negative Urine Urobilinogen 4.0 H Ur Leukocyte Esterase Neg Urine WBC (Auto) 3 Urine RBC (Auto) 12 H Ur Squamous Epith Cells 9 H Urine Bacteria Few H Urine HCG, Qual Positive Blood Type Antibody Screen 04/20/18 04/20/18 14:54 17:44 WBC RBC Hgb Hct MCV MCH MCHC RDW Plt Count MPV Neut % (Auto) Lymph % (Auto) [place] % (Auto) Eos % (Auto) Baso % (Auto) Neut # (Auto) Lymph # (Auto) [place] # (Auto) Eos # (Auto) Baso # (Auto) PT 11.2 INR 1.0 APTT 33 Sodium Potassium Chloride Carbon Dioxide Anion Gap BUN Creatinine Est GFR ( Amer) Est GFR (Non-Af Amer) Random Glucose Calcium Total Bilirubin AST ALT Alkaline Phosphatase Total Protein Albumin Globulin Albumin/Globulin Ratio Beta HCG, Quant Urine Color Urine Clarity Urine pH Ur Specific [place] Urine Protein Urine Glucose (UA) Urine Ketones Urine Blood Urine Nitrate Urine Bilirubin Urine Urobilinogen Ur Leukocyte Esterase Urine WBC (Auto) Urine RBC (Auto) Ur Squamous Epith Cells Urine Bacteria Urine HCG, Qual Blood Type O POSITIVE Antibody Screen Negative - Imaging and Cardiology US - abdomen Status: Report reviewed by me Assessment & Plan - Assessment and Plan (Free Text) Assessment: 1. Incomplete Missed and presently bleeding 2. Inadequate response to previous treatment with Misopostrol 4 weeks ago 3. Pelvic cramping 4. + Suprapubic tenderness with urinary complaints. Urine culture ordered 5. Headaches 6. Probable cystitis and Dehydration. Drinks little to no water Plan: Type and Screen order IV fluids and Ancef 2 grams IV Recommended an EUA and Suction D&C ROBI Procedure, risks and possible complications fully reviewed with the patient and verbalized undertanding. Requested to proceed and Anesthesia and OR notified Operative Consent signed - Date & Time Date: 04/20/18 Time: 17:20
--- NOTE | 2018-04-20 18:25 | CP.PCM.HP ---
History of Present Illness - History of Present Illness History of Present Illness: History of Present Illness: 37 y/o female presents to ED with c/o low back pain radiating to lower abdo men associated with orange urine and foul odor in urine. Patient reports vaginal bleeding for 3 days and states she took Home test yesterday that was positive. Patient states on 03/22/18 she was diagnosed with miscarriage and was discharged with cytotec. Patient states 3 days after taking medication at home passed blood clot. Patient took Aleve for tactile fever and denies nausea, vomiting or any other complaints at this time. Pt admits to painful urination and severe occipital RIVERA. Review of Systems - Cardiovascular Cardiovascular: absent: Chest Pain, Pedal Edema - Respiratory Respiratory: absent: Chest Congestion - Gastrointestinal Gastrointestinal: Cramping. absent: Constipation, Vomiting - Genitourinary Genitourinary: Difficulty Urinating, Urinary Frequency - Menstruation Menstruation: Cycle <21 Days - Integumentary Integumentary: absent: Bleeding Lesions, Unusual Bruising - Neurological Neurological: Headaches. absent: Other Visual Disturbances Back exam: NORMAL INSPECTION - Neurological Exam Neurological exam: Alert, Oriented x3 - Psychiatric Exam Psychiatric exam: Normal Affect, Normal Mood - Skin Skin Exam: Dry, Normal Col Present on Admission - Present on Admission Any Indicators Present on Admission: No Review of Systems - Review of Systems Review of Systems: Review of Systems - Cardiovascular Cardiovascular: absent: Chest Pain, Pedal Edema - Respiratory Respiratory: absent: Chest Congestion - Gastrointestinal Gastrointestinal: Cramping. absent: Constipation, Vomiting - Genitourinary Genitourinary: Difficulty Urinating, Urinary Frequency - Menstruation Menstruation: Cycle <21 Days - Integumentary Integumentary: absent: Bleeding Lesions, Unusual Bruising - Neurological Neurological: Headaches. absent: Other Visual Disturbances Past Patient History - Past Medical History & Family History Past Family History: Reviewed and not pertinent - Past Social History Smoking Status: Never Smoked Chewing Tobacco Use: No Cigar Use: No Alcohol: Occasional Drugs: Denies - CARDIAC Hx Cardiac Disorders: No - PULMONARY Hx Respiratory Disorders: No - NEUROLOGICAL Hx Neurological Disorder: No Hx Alzheimer's Disease: No - HEENT Hx HEENT Problems: No - RENAL Hx Chronic Kidney Disease: No - ENDOCRINE/METABOLIC Hx Endocrine Disorders: No - HEMATOLOGICAL/ONCOLOGICAL Hx Blood Disorders: No - INTEGUMENTARY Hx Dermatological Problems: No - MUSCULOSKELETAL/RHEUMATOLOGICAL Hx Musculoskeletal Disorders: No - GASTROINTESTINAL Hx Gastrointestinal Disorders: No - GENITOURINARY/GYNECOLOGICAL Hx Genitourinary Disorders: Yes (ovarian cysts) Hx Cervical Cancer: No Hx Sexually Transmitted Disorders: No Hx Urinary Tract Infection: Yes LMP:: 01/26/2018 : 6 Para: 4 Termination of : 1 - PSYCHIATRIC Hx Substance Use: No - SURGICAL HISTORY Hx Surgeries: Yes Hx Dilation and Curettage: Yes (1999) Other/Comment: Laparoscopic ovarian cystectomy, 2008 and 2012. Past Patient His tory. - Infectious Disease. Hx of Infectious Diseases: None. - Past Medical History & Family History. Past Medical History?: No. Past Family History: Reviewed and not pertinent. - Past Social History. Smoking Status: Never Smoked. Chewing Tobacco Use: No. Cigar Use: No. Alcohol: Occasional. Drugs: Denies. - CARDIAC. Hx Cardiac Disorders: No. - PULMONARY. Hx Respiratory Disorders: No. - NEUROLOGICAL. Hx Neurological Disorder: No. Hx Alzheimer's Disease: No. - HEENT. Hx HEENT Problems: No. - RENAL. Hx Chronic Kidney Disease: No. - ENDOCRINE/METABOLIC. Hx Endocrine Disorders: No. - HEMATOLOGICAL/ONCOLOGICAL. Hx Blood Disorders: No. - INTEGUMENTARY. Hx Dermatological Problems: No. - MUSCULOSKELETAL/RHEUMATOLOGICAL. Hx Musculoskeletal Disorders: No. - GASTROINTESTINAL. Hx Gastrointestinal Disorders: No. - GENITOURINARY/GYNECOLOGICAL. Hx Genitourinary Disorders: Yes (ovarian cysts). Hx Cervical Cancer: No. Hx Sexually Transmitted Disorders: No. Hx Urinary Tract Infection: Yes. LMP:: 01/26/2018. : 6. Para: 4. Termination of : 1. - PSYCHIATRIC. Hx Substance Use: No. - SURGICAL HISTORY. Hx Surgeries: Yes. Hx Dilation and Curettage: Yes (1999). Other/Comment: Laparoscopic ovarian cystectomy, 2008 and 2012. - ANESTHESIA. Hx Anesthesia: Yes. Hx Anesthesia Reactions: No. Hx Malignant Hyperthermia: No - ANESTHESIA Hx Anesthesia: Yes Hx Anesthesia Reactions: No Hx Malignant Hyperthermia: No Meds Home Medications: Home Medication List Medication Instructions Recorded Confirmed Type Acetaminophen [Tylenol 325mg tab] 650 mg PO ONCE tab 04/20/18 Rx Allergies/Adverse Reactions: Allergies Allergy/AdvReac Type Severity Reaction Status Date / Time No Known Allergies Allergy Verified 03/22/18 14:11 Physical Exam - Constitutional Appears: Well - Head Exam Head Exam: ATRAUMATIC, NORMAL INSPECTION, NORMOCEPHALIC - Eye Exam Eye Exam: EOMI, Normal appearance, PERRL Pupil Exam: NORMAL ACCOMODATION, PERRL - ENT Exam ENT Exam: Mucous Membranes Moist, Normal Exam - Neck Exam Neck exam: Positive for: Normal Inspection - Respiratory Exam Respiratory Exam: Clear to Auscultation Bilateral, NORMAL BREATHING PATTERN - Cardiovascular Exam Cardiovascular Exam: REGULAR RHYTHM - GI/Abdominal Exam GI & Abdominal Exam: Normal Bowel Sounds, Soft. absent: Tenderness - Rectal Exam Rectal Exam: NORMAL INSPECTION - Exam Exam: Circumcision, NORMAL INSPECTION External exam: NORMAL EXTERNAL EXAM Speculum exam: NORMAL SPECULUM EXAM Bimanual exam: NORMAL BIMANUAL EXAM - Extremities Exam Extremities exam: Positive for: normal inspection - Back Exam Back exam: NORMAL INSPECTION - Neurological Exam Neurological exam: Alert, CN II-XII Intact, Normal Gait, Oriented x3, Reflexes Normal - Psychiatric Exam Psychiatric exam: Normal Affect, Normal Mood - Skin Skin Exam: Dry, Intact, Normal Color, Warm - Additional Findings Additional findings: - Constitutional Appears: No Acute Distress - Head Exam Head Exam: NORMAL INSPECTION - Neck Exam Neck exam: Positive for: Normal Inspection. Negative for: Tenderness - Respiratory Exam Respiratory Exam: NORMAL BREATHING PATTERN - Cardiovascular Exam Cardiovascular Exam: REGULAR RHYTHM - GI/Abdominal Exam GI & Abdominal Exam: Normal Bowel Sounds, Soft. absent: Distended, Firm, Guarding, Rebound - Rectal Exam Rectal Exam: NORMAL INSPECTION - Exam Exam: NORMAL INSPECTION External exam: NORMAL EXTERNAL EXAM Speculum exam: Vaginal Bleeding Bimanual exam: Uterine Enlargement, Uterine Tenderness - Extremities Exam Extremities exam: Positive for: normal inspection. Negative for: calf tenderness - Back Exam Back exam: NORMAL INSPECTION - Neurological Exam Neurological exam: Alert, Oriented x3 - Psychiatric Exam Psychiatric exam: Normal Affect, Normal Mood - Skin Skin Exam: Dry, Normal Color Results - Vital Signs Recent Vital Signs: Last Vital Signs Temp 98.3 F 04/20/18 15:56 Pulse 57 L 04/20/18 15:56 Resp 16 04/20/18 15:56 BP 95/58 L 04/20/18 15:56 Pulse Ox 100 04/20/18 17:57 Results - Vital Signs Recent Vital Signs: Last Vital Signs Temp 98 F 04/20/18 18:18 Pulse 55 L 04/20/18 18:18 Resp 20 04/20/18 18:18 BP 98/61 L 04/20/18 18:18 Pulse Ox 100 04/20/18 18:18 - Labs Result Diagrams: 04/20/18 14:54 04/20/18 14:54 Labs: Laboratory Results - last 24 hr 04/20/18 04/20/18 04/20/18 14:54 14:54 14:54 WBC 6.6 RBC 3.87 Hgb 12.3 Hct 36.3 MCV 93.9 MCH 31.7 H MCHC 33.8 RDW 13.4 Plt Count 252 MPV 7.4 Neut % (Auto) 60.8 Lymph % (Auto) 28.0 [place] % (Auto) 8.3 Eos % (Auto) 2.2 Baso % (Auto) 0.7 Neut # (Auto) 4.0 Lymph # (Auto) 1.8 [place] # (Auto) 0.5 Eos # (Auto) 0.1 Baso # (Auto) 0.0 PT INR APTT Sodium 138 Potassium 4.4 Chloride 103 Carbon Dioxide 26 Anion Gap 14 BUN 13 Creatinine 0.5 L Est GFR ( Amer) > 60 Est GFR (Non-Af Amer) > 60 Random Glucose 92 Calcium 9.5 Total Bilirubin 0.5 AST 21 ALT 22 Alkaline Phosphatase 71 Total Protein 7.4 Albumin 4.4 Globulin 3.0 Albumin/Globulin Ratio 1.5 Beta HCG, Quant 808.71 Urine Color Yellow Urine Clarity Hazy Urine pH 6.0 Ur Specific [place] 1.021 Urine Protein Negative Urine Glucose (UA) Normal Urine Ketones Negative Urine Blood 2+ H Urine Nitrate Negative Urine Bilirubin Negative Urine Urobilinogen 4.0 H Ur Leukocyte Esterase Neg Urine WBC (Auto) 3 Urine RBC (Auto) 12 H Ur Squamous Epith Cells 9 H Urine Bacteria Few H Urine HCG, Qual Positive Blood Type Antibody Screen 04/20/18 04/20/18 14:54 17:44 WBC RBC Hgb Hct MCV MCH MCHC RDW Plt Count MPV Neut % (Auto) Lymph % (Auto) [place] % (Auto) Eos % (Auto) Baso % (Auto) Neut # (Auto) Lymph # (Auto) [place] # (Auto) Eos # (Auto) Baso # (Auto) PT 11.2 INR 1.0 APTT 33 Sodium Potassium Chloride Carbon Dioxide Anion Gap BUN Creatinine Est GFR ( Amer) Est GFR (Non-Af Amer) Random Glucose Calcium Total Bilirubin AST ALT Alkaline Phosphatase Total Protein Albumin Globulin Albumin/Globulin Ratio Beta HCG, Quant Urine Color Urine Clarity Urine pH Ur Specific [place] Urine Protein Urine Glucose (UA) Urine Ketones Urine Blood Urine Nitrate Urine Bilirubin Urine Urobilinogen Ur Leukocyte Esterase Urine WBC (Auto) Urine RBC (Auto) Ur Squamous Epith Cells Urine Bacteria Urine HCG, Qual Blood Type O POSITIVE Antibody Screen Negative - Imaging and Cardiology US - abdomen Status: Report reviewed by me Assessment & Plan - Assessment and Plan (Free Text) Assessment: Assessment: 1. Incomplete Missed and presently bleeding 2. Inadequate response to previous treatment with Misopostrol 4 weeks ago 3. Pelvic cramping 4. + Suprapubic tenderness with urinary complaints. Urine culture ordered 5. Headaches 6. Probable cystitis and Dehydration. Drinks little to no water Plan: Plan: Type and Screen order IV fluids and Ancef 2 grams IV Recommended an EUA and Suction D&C ROBI Procedure, risks and possible complications fully reviewed with the patient and verbalized undertanding. Requested to proceed and Anesthesia and OR notified Operative Consent signed - Date & Time Date: 04/20/18 Time: 18:30
[2018-04-20] MEDS ORDERED: Midazolam 2 MG/2 ML VIAL ONE (18:46)
[2018-04-20] MEDS ORDERED: Oxytocin 10 Units/ml Inj ONE ×2 (18:46→19:03)
[2018-04-20] MEDS ORDERED: Propofol 10 mg/ml Inj (20 ML) ONE (18:46)
[2018-04-20] MEDS ORDERED: ePHEDrine 50 mg/ml Inj ONE (18:47)
[2018-04-20] MEDS ORDERED: HYDROmorphone 0.5 mg/0.5 ml ISec IVP PRN (19:14)
--- NOTE | 2018-04-20 19:29 | PCM.SURG1 ---
Surgeon's Initial Post Op Note - Surgeon's Notes Surgeon: Irish Perdomo DO Coal Trammer: None Type of Anesthesia: General Endo Anesthesia Administered By: Dr. Berry Pre-Operative Diagnosis: Incomplete Miss Operative Findings: Moderate amount of tissue in uterus and recovered. Uterus about 10-12 weeks size. Unable to palpate adnexa secondary to uterine size. Externa genitalia, vagina and cervix WNL. + Vaginal bleeding Post-Operative Diagnosis: Same as Preoperative Operation Performed: Exam Under Anesthesia. Suction Dilatation and Curettage Specimen/Specimens Removed: Products of Conception Estimated Blood Loss: EBL {In ML}: 100 Blood Products Given: N/A Drains Used: No Drains Date of Surgery/Procedure: 04/20/18 Time of Surgery/Procedure: 19:15
[2018-04-20 20:41] VITALS: BP 105/59; PULSE 63; RESP 13; TEMP 98.1
[2018-04-21 22:44] VITALS: O2SAT 100
--- NOTE | 2018-04-26 03:19 | OP ---
PROCEDURE DATE: 04/20/2018 PREOPERATIVE DIAGNOSIS: Incomplete missed . POSTOPERATIVE DIAGNOSIS: Incomplete missed . PROCEDURES: 1. Exam under anesthesia. 2. Suction, dilatation and curettage. SURGEON: Irish Perdomo DO MANAGER SAFE: None. ANESTHESIA: General endotracheal. ANESTHESIOLOGIST: Dr. Esquivel. COMPLICATIONS: None. SPECIMEN: Products of conception. PREOPERATIVE FINDINGS: The patient is a 37-year-old female who has had a missed and was given Methergine few days prior to this emergency room visit. Presented to ER this time with continuous bleeding, has passed some tissue, and returned to the emergency room this time complaining of pain and bleeding. The ultrasound revealed + tissue in the uterus which was also enlarged. Pt is a grand multiparous female. The exam under anesthesia revealed external genitalia, vagina and cervix within normal limits. There was some vaginal bleeding at the time of exam. The uterus was about 10 to 12 week size, we were unable to palpate the adnexa secondary to the uterus size. No adnexal tenderness. ESTIMATED BLOOD LOSS: 100 mL. DRAINS: No drains used. PREOPERATIVE NOTE: The procedure, the risks and the possible complications were fully reviewed with the patient to include, but not exclusively, hemorrhage, infection, injury to bowel, bladder, bilateral tubes and ovaries, uterus, internal blood vessels or any other internal organs. The patient verbalized understanding, requested to proceed and signed the consent. DESCRIPTION OF PROCEDURE: The patient was taken to the operating room, and she was given a general form of Anesthesia. She was sterilely prepped and draped in the usual manner for the above-named procedure. The time-out was then carried out as indicated, and the exam under anesthesia was then performed with the findings as noted above. A heavy-weighted speculum was placed in the posterior aspect of the vagina. With the aid of the right angle retractor, the anterior lip of the cervix was grasped with a single-tooth tenaculum. The cervix was then gradually dilated to admit a size 8 suction curette, and this was utilized to suction the endometrial cavity at all 4 quadrants and in a systematic manner. The suction curette was then removed, and with a regular medium size endometrial curette, we ascertained complete emptiness of the endometrial cavity, and the procedure was terminated. The patient was receiving Pitocin infusion through the IV, and hemostasis was adequate. At this time, the procedure was terminated. The patient tolerated the procedure well, and she went to the recovery room in stable and satisfactory condition. All instruments and sponges were accounted for. Irish Perdomo DO [facility] MEDICAL CENTERLynda
== END 2018-04-20 20:50 | disposition home or self-care (01) ==
LOC: C.ER 12:26 → C.9E 17:46 → UNDOADMIN 17:46 → C.SDS 18:18
PROVIDERS: ATTEND Obstetrics & Gynecology
DX: O03.4 Incomplete spontaneous abortion without complication (principal)
CPT/HCPCS: 59812; 76805; 76817; 80053; 81001; 84702; 84703; 85025; 85610; 85730; 86850; 86900; 87086; 87181; 96361; 96374; 96375; 99285; J0690; J1885; J2210; J2250; J2590; J2704; J3010; J7120